=== PATIENT | male | born 1955 | race Caucasian/White ===

== ENCOUNTER 2020-12-27 10:31 | Emergency (ER) | payer OTHER, SELFPAY ==
[2020-12-27 11:34] VITALS: BP 150/93; PULSE 58; RESP 14; TEMP 36.9; O2SAT 99
--- NOTE | 2020-12-27 12:43 | ED.SKABFB ---
HPI - Skin/Abscess/Foreign Bdy General Chief complaint: Skin/Abscess/Foreign Body Stated complaint: rash on mitchell Source: patient Mode of arrival: ambulatory Limitations: no limitations History of Present Illness HPI narrative: Patient is a 65-year-old male who presents with redness to the right lower extremity x2 days. Patient reports that he was weed whacking weekend and possible injury. Denies pain, warmth or tenderness to right lower extremity. Patient reports that he was wanting wound checked as he is traveling out of the [facility] this week. Denies history of DVT. Denies all other complaints at this time. Patient is on Eliquis. complaint: rash Related Data Allergies Allergy/AdvReac Type Severity Reaction Status Date / Time No Known Allergies Allergy Verified 12/27/20 11:57 Review of Systems Review of Systems: CONSTITUTIONAL: Denies fever, chills, or sweats. EYES: Denies visual changes, redness, or discharge. ENT: Denies rhinorrhea, congestion, sore throat, or otalgia. CARDIOVASCULAR: Denies chest pain, palpitations, or edema. RESPIRATORY: Denies cough or dyspnea. GASTROINTESTINAL: Denies abdominal pain, nausea, vomiting, or diarrhea. GENITOURINARY: Denies dysuria or hematuria. SKIN: Reports reddened area to right lower extremity MUSCULOSKELETAL: Denies back pain, joint pain, or myalgia. NEUROLOGIC: Denies headache, numbness, dizziness, or weakness. PSYCHIATRIC: Denies anxiety or depression. [facility] Past Medical History Medical History Atrial fib/flutter, transient History of cardioversion HTN (hypertension) Family History Family History Other Heart disease Hypertension Social History Social History (Updated 12/27/20 @ 12:49 by ALON Velazquez) Smoking status: Never smoker Alcohol intake: never Substance use: never Living arrangements: with family Comments At the time of signature, I have reviewed and agree with nursing past medical, surgical, social, and family history unless otherwise noted. Please see nursing chart for further information. There is no relevant family history pertinent to the presenting complaint. Exam Narrative: GENERAL: Well-appearing, well-nourished, and in no acute distress. HEAD: Normocephalic, atraumatic. EYES: EOMI. No redness or drainage. Conjunctiva are normal. ENT: Mucous membranes pink and moist. CHEST: No respiratory distress. HEART: Regular rate and rhythm. EXTREMITIES: Normal range of motion. SKIN: Small area of redness to right lower extremity, no surrounding erythema or edema, no tenderness with palpation NEURO: No focal deficits. Alert and oriented x3. Gait steady. PSYCH: Normal affect. No signs of depression or anxiety. Course Vital Signs Vital signs: Vital Signs Temperature 36.9 C 12/27/20 11:34 Pulse Rate 58 L 12/27/20 11:34 Respiratory Rate 14 12/27/20 11:34 Blood Pressure 150/93 H 12/27/20 11:34 Pulse Oximetry 99 12/27/20 11:34 Temperature 36.9 C 12/27/20 11:34 Pulse Rate 58 L 12/27/20 11:34 Respiratory Rate 14 12/27/20 11:34 Blood Pressure 150/93 H 12/27/20 11:34 Pulse Oximetry 99 12/27/20 11:34 MDM - Skin/Abscess/Foreign Bdy MDM Narrative Medical decision making narrative: Patient most likely has bruising to right lower extremity. Discussed with patient that there is no surrounding erythema or edema for concerning cellulitis. Discussed with patient the low risk of DVT in extremity. Patient agrees with plan of care. Patient stable for discharge home with outpatient follow-up as discussed. Differential Diagnosis Differential diagnosis: Likely abscess of skin or subcutaneous tissue, cellulitis and other (Ecchymosis) Critical Care Time Critical Care Time Critical Care Time: No Discharge Plan Discharge Clinical Impression: Bruise Patient Disposition: Home, Self-Care Conditio
== END 2020-12-27 12:54 | disposition home or self-care (01) ==
PROVIDERS: Emergency Provider Nurse Practitioner; PCP Internal Medicine Geriatric Medicine
DX: S80.11XA Contusion of right lower leg, initial encounter (principal); X58.XXXA Exposure to other specified factors, initial encounter; I48.91 Unspecified atrial fibrillation; I10 Essential (primary) hypertension
CPT/HCPCS: 99211; G0463

== ENCOUNTER 2025-02-05 08:16 | Emergency (ER) | payer MEDICARE, SELFPAY ==
--- OUTSIDE RECORDS SUMMARY | 2011-11-11 11:00 | XMS_ITS | Continuity of Care Document ---
Author Organization [facility] Address [address] [place] [address] Phone Care Team Providers Care Facility Specialist Name Role Phone Andrew Lozoya MD Unavailable Unavailable Allergies, Adverse Reactions, Alerts Substance Reaction Status Criticality No Known allergies Medications Medication Instructions Dosage Effective Dates (start - stop) Status Comments Amlodipine 5 mg Tab - Active Labetalol 200 mg Tab - Active Spironolactone 50 mg Tab - Activ e Procedures Procedure Date Office/outpatient Visit, [facility] Advance Directives Directive Yes / No Effective Date File Name No Information Encounters Encounter Description Practice Location Reason(s) For Visit Diagnoses Date Provider Providers Copied on Encounter Office/outpat ient Visit, [facility], [address], [place], [place], [id number], [place] tel:[phone] SEC Chris TAN Professional No Information 2 Darell Morales. [address] [facility], [facility], [place], [place], [id number], [place]. tel:[phone] Family History Family Member Type Diagnosis Age At Onset No Information Payers Payer name Insurance type Covered democrat ID Authoriza tion(s) No Information Social History Type Description Quantity Date Captured Comments Sex Male Smoking Status No Information Chief Complaint And Reason For Visit No Information Reason For Referral Reason For Referral No Information History Of Present Illness Encounter Date Complaint History Of Prese nt Illness No Information Functional Status Date Functional Assessmen t No Information Instructions Date Instruction Additional Infor benedict MGD ou sith sty [facility] - HMPt/dex qid for 7 days osprn Assessments Type Assessment Date No Information Patient Care Teams Name Effective Dates (start - stop) Status Members No Information
[2025-02-05 08:20] VITALS: BP 145/106; PULSE 75; RESP 20; TEMP 36.9; O2SAT 99
--- OUTSIDE RECORDS SUMMARY | 2025-02-05 08:21 | XMS_ITS | Clinical Summary ---
Author Organization [facility] [employer] Address [address] [place] [address] Phone Care Team Providers Care Telephone Betting Clerk Name Role Phone Ashley Nj MD Primary Care Provider + [phone] Nikolai Riddle MD Unavailable [phone] Lizzy Lundberg OD Unavailable [phone] Garry Kumari MD Unavailable [phone] Aron Hinkle MD Unavailable [phone] Carmela Tavares NP Unavailable [phone] Jerson Shepherd MD Unavailable [phone] Ayala Cassidy MD Unavailable [phone] Tray Phillips MD Unavailable Allergies No known active allergies Medications cholecalciferol (VITAMIN D3) 2,000 unit capsule take 1 by Oral route every day 0 0 7 Active fluticasone propionate (FLONASE) 50 mcg/actuation nasal spray Administer 1 spray into each nostril daily as needed for rhinitis Active cyanocobalamin (Vitamin B-12) 1,000 mcg tabletIndications :Prevention of Vitamin B12 Deficiency Take 1 tablet (1,000 mcg total) by mouth daily Active amLODIPine (NORVASC) 5 mg tabletIndications :Benign hypertension Take 0.5 tablets (2.5 mg total) by mouth 2 (two) times a day 90 tablet 3 5 10/21/19 26 Active furosemide (LASIX) 40 mg tablet TAKE 1 TABLET(40 MG) BY MOUTH DAILY 90 tablet 3 5 Active clindamycin (CLEOCIN T) 1 % lotion APPLY TOPICALLY TO THE AFFECTED AREA 1 TO 2 TIMES DAILY UNTIL GONE 5 Active tirzepatide, weight loss, (Zepbound) 2.5 mg/0.5 mL pen injectorIndicatio ns:Class 2 obesity with alveolar hypoventilation, serious comorbidity, and body mass index (BMI) of 37.0 to 37.9 in adult (HCC),Obstructive sleep apnea syndrome Inject 0.5 mL (2.5 mg total) under the skin once a week 2 mL 1 5 Active empagliflozin (Jardiance) 10 mg tablet Take 1 tablet (10 mg total) by mouth daily before breakfast 90 tablet 3 5 Active apixaban (Eliquis) 5 mg tabletIndications :Atrial fibrillation and flutter Take 1 tablet (5 mg total) by mouth 2 (two) times a day 180 tablet 2 5 Active carvediloL (COREG) 25 mg tabletIndications :Benign hypertension,Atri al fibrillation and flutter Take 1 tablet (25 mg total) by mouth 2 (two) times a day with meals 180 tablet 2 5 Active lansoprazole (PREVACID) 30 mg capsuleIndication s:Chronic GERD Take 1 capsule (30 mg total) by mouth daily Eat within 30 minutes of taking this pill 90 capsule 2 5 Active rosuvastatin (CRESTOR) 20 mg tabletIndications :Multiple-type hyperlipidemia,Co ronary artery calcification seen on CAT scan Take 1 tablet (20 mg total) by mouth daily 90 tablet 2 5 Active spironolactone (ALDACTONE) 25 mg tabletIndications :Benign hypertension Take 1 tablet (25 mg total) by mouth daily 90 tablet 2 5 Active Active Problems Problem Noted Date Diagnosed Date Coronary artery calcification seen on CAT scan 0 12/23/2024 Ascending aortic aneurysm 06/21/2024 Overview (06/21/2024): Follow-up cardiology Dr. Shepherd with yearly CT chest 2024 4.4 cm with known findings of cardiac enlargement and coronary calcifications Alcohol use disorder, moderate, dependence 06/21 Pulmonary hypertension 01/22/2024 Overview (06/21/2024): Followed by Dr. Shepherd and Carmela Mild pulmonary hypertension based on right ventricular systolic pressure. Estimated peak RVSP is 40-45 mmHg. Mild tricuspid regurgitation. Mitral valve insufficiency 01/02/2024 S/P umbilical hernia repair, follow-up exam 12/2023 Multiple-type hyperlipidemia 06/12/2022 Hx of adenomatous colonic polyps 11/24/2019 Overview (07/29/2023): Colonoscopy 2023 Dr[address] Phillips single tubular adenoma Colonoscopy (+) 2018 Dr. Hinkle, family history of colon cancer due every 5 years next 2023 Family hx of colon cancer 08/17/2018 Overview (08/17/2018): Added automatically from request for surgery [id number] Class 2 obesity with alveola r hypoventilation, serious comorbidity, and body mass index (BMI) of 37.0 to 37.9 in adult 01/09/2017 Chronic GERD 09/04/2013 Overview (07/25/2016): GERD (gastroesophageal reflux disease) Benign hypertension 09/04/2013 Overview (07/25/2016): Benign essential HTN Assessment & Plan (05/26/2019 10:22 AM BODY SHOP WORKER): Blood pressure well controlled will continue present regimen Assessment & Plan (05/19/2019 10:33 AM BODY SHOP WORKER): Amlodipine Coreg Aldactone Atrial fibrillation and flutter 04/05/2013 Overview (01/22/2018): Atrial flutter with controlled response Referred to Dr. Kumari, underwent cardioversion 09/12/2017 Follow up with Josselyn C. [place], CONTRACT CONSULTANT (Nurse Practitioner); Follow up with Josselyn Mathis CONTRACT CONSULTANT ([place] Reconciliation Specialist) Friday11/26/17 at 9:00am in the [place] office [address] ([facility]) [address] [place] [address]; . Follow up with Other Follow-up; Echocardiogram on Friday10/03/17 at 10:30 am in the [place] office #[address] Stephanie Monreal ([facility]) [address] [place] [address]; . Follow up with Other Follow-up; Lexiscan Stress Test on 10/09/17 at 9:00 am in the [place] office [address] ([facility]) [address] [place] [address]; .; Nothing to eat or drink after midnight the night prior to the test. Assessment & Plan (05/19/2019 10:33 AM BODY SHOP WORKER): 100mg Amiodarone 12.5mg BID of Coreg Eliquis 5mg BID Periodic limb movement disorder 09/06/2012 Overview (07/25/2016): PLMD (periodic limb movement disorder) Obstructive sleep apnea syndrome 07/30/2012 Overview (07/25/2016): JENNIFER (obstructive sleep apnea) Assessment & Plan (05/26/2019 10:59 AM BODY SHOP WORKER): Patient uses CPAP for sleep. He is compliant with and seeing benefit. Follows with pulmonary for management. Assessment & Plan (05/19/2019 10:34 AM BODY SHOP WORKER): Compliant with CPAP Resolved Problems Problem Noted Date Diagnosed Date Resolved Date Umbilical hernia without obs truction and without gangrene 06/17/2023 07/29/2023 Screening for colon cancer 06/11/2023 0 12/22/2024 Basal cell carcinoma (BCC) of left forearm 04/08/2022 12/23/2024 Dysphagia 01/01/2022 05/20/2022 Overview (01/01/2022): Added automatically from request for surgery [id number] Acute bacterial rhinosinusitis 08/24/2021 05/20/2022 Assessment & Plan (08/24/2021 1:16 PM CDT): Patient presents with ear fullness and sinus congestion x 10 days. He has used sudafed with little relief. His symptoms and exam findings are suggestive of acute sinusitis. Flu and covid testing negative. He will be sent antibiotic that he will complete as prescribed. He was encouraged to use sinus rinses, flonase, and Mucinex as well. Encouraged rest, fluids and tylenol for pain or fever. He is to call should his symptoms worsen or persist. Plant dermatitis 09/12/2020 05/15/2021 Assessment & Plan (09/12/2020 9:55 AM CDT): Patient has blistering linear rash on left upper arm, axilla and left shoulder that occurred after weeding late last week. Rash associated with itching and burning. Most consistent with a plant dermatitis. He has had no further spread since Friday. He was encouraged to use a non-sedating daily antihistamine and pepcid 20mg twice a day to help with histamine response. He will be sent rx for topical steroid that he can apply BID as needed. He was instructed to call with any persistent or spreading symptoms. He voiced understanding. COVID-19 virus detected 12/16/201904/23 Overview (12/16/2019): (+) 12/17/19 Left shoulder pain 05/11/2019 Assessment & Plan (05/26/2019 10:21 AM BODY SHOP WORKER): Pain is persistent and he has not seen much improvement since beginning physical therapy. He has seen ortho in the past and we will refer back for further evaluation. He can continue with tylenol for pain. Assessment & Plan (05/11/2019 10:55 AM BODY SHOP WORKER): Patient presents with acute left shoulder tearing/achy pain that occurred with throwing trash over head today. Patient has known hx of rotator cuff tear with repair and symptoms are somewhat similar. We will do xray of the left shoulder to r/o any acute fracture or dislocation. He was encouraged to use ice for pain and rest the shoulder. He can also use ibuprofen for pain and use Prilosec over the counter to protect his stomach, patient reports has not needed stomach protectant in past. If no acute process on xray will refer for physical therapy. He has a follow up scheduled the beginning of May and will re-evaluate at that time. He was instructed if any worsening pain or associated numbness he will need to call and will most likely at that point need a MRI. Hematoma 03/01/2019 05/15/2021 Assessment & Plan (03/08/2019 11:00 AM BODY SHOP WORKER): RLE hematoma secondary to injury, exacerbated in the setting of anticoagulant use with eliquis. No signs of fracture identified. No enlargement in size reported per pt. Pt instructed to continue with ice and elevation. He was instructed to call if symptoms worsen or he develops any associated fevers Allergic rhinitis 08/01/2017 11/24/2019 Assessment & Plan (08/01/2017 10:11 AM CDT): Patient denies any difficulty breathing true bilateral nares. Patient states that he was unaware of any nasal blockage and did note any symptoms related to nasal blockage. His PCP was concerned about a nasal obstruction. Patient has continued allergic rhinitis symptoms including congestion, rhinorrhea, enlarged turbinates. Patient has never been allergy tested and is unaware specific triggers. Patient does note an increase in his symptoms during the fall, sprain, and rainy days. Patient currently takes p.r.n. allergy nasal sprays. Discussed with patient's the importance of taking his allergy medication on a regular basis. Advised patient to use Flonase daily take an oral Zyrtec daily and add a nasal irrigation daily If his symptoms do not improve we will consider allergy testing and possible imaging. A do think the concern for obstruction is related to his uncontrolled allergies and congestion. Patient to follow-up in 3 months or sooner if symptoms do not improve Umbilical hernia with obstruction 07/16/2017 12/22/2024 Assessment & Plan (06/05/2023 9:47 AM BODY SHOP WORKER): Given the symptomatic nature we will set the patient up for a robotic assisted umbilical hernia repair. Given his full anticoagulation use we will have him seen by Cardiology in preparation so that we may be able to hold it. He also is due for his 5 year colonoscopy. We have discussed I would like to have this done beforehand just to ensure nothing is found within the colon. Until then he can try an abdominal binder to offload any discomfort he may have. We have gone over signs and symptoms of incarceration. He is in understanding of the plan. Nasal obstruction 07/16/2017 11/24/2019 Prediabetes 01/09/2017 05/29/2023 Chronic rhinitis 09/04/2013 05/15/2021 Overview (07/25/2016): Chronic rhinitis Encounters Date Type Department Care Team Description 12/23/2024 8:00 AM CDT Office Visit [facility] [place] [facility] [address] [place] [address] Ashley Nj MD Class 2 obesity with alveolar hypoventilation, serious comorbidity, and body mass index (BMI) of 37.0 to 37.9 in adult (HCC) (Primary Dx); Obstructive sleep apnea syndrome; Benign hypertension; Aneurysm of ascending aorta without rupture; Atrial fibrillation and flutter; Chronic GERD; Multiple-type hyperlipidemia; Coronary artery calcification seen on CAT scan; Alcohol use disorder, moderate, dependence (HCC); Hx of adenomatous colonic polyps; Family hx of colon cancer; Prediabetes; Prostate cancer screening; Other symptoms and signs concerning food and fluid intake 12/14/2024 7:40 AM CDT Lab [facility] [address] [place] [address] Encounter for medication monitoring; Need for hepatitis B screening test; Atrial fibrillation and flutter; Coronary artery calcification seen on CAT scan; Prediabetes from Last 3 Months Immunizations Immunization Administration Dates Next Due Influenza, Quadrivalent, Hig h Dose, Preservative Free, Intrr 05/29/2023 Influenza, Quadrivalent, Spl it, Intramuscular 02/12/2017,07/08/2016 Influenza, Quadrivalent, Spl it, Preservative Free, Intramuscular 05/20/2022,05/15/2021,03/10/2019,01/28 Influenza, Trivalent, IM (MDV) 04/25/2014 MMR 02/18/2008 Pneumococcal Conjugate Pcv20 05/29/2023 Tdap 07/16/2017,03/20/2012 Surgical History Surgery Date Site/Laterality Comments ROTATOR CUFF REPAIR Right Details lacking. COLONOSCOPY W/ BIOPSIES AND POLYPECTOMY 08/19/2013 - 09/18/2013 Colonoscopy (+) tubular adenoma Dr. Mcmahon CARDIOVERSION 09/12/[address] Kumari COLONOSCOPY 08/19/2013 - 09/18/201308/2013 COLONOSCOPY W/ POLYPECTOMY 09/17/2018 (+)Dr. Hinkle single ascending polyp SINGLE TUBULAR ADENOMA ROTATOR CUFF REPAIR Left Details lacking. ESOPHAGOSCOPY / EGD 01/10/2022 (-) Dr. Garcia COLONOSCOPY 07/01/2023 (+) Dr. Phillips several polyps pathology pending: Single tubular adenoma due 06/30/26 not a clean test SKIN CANCER EXCISION HERNIA REPAIR 07/18/[address] Dr. Phillips Medical History Medical History Date Comments Vertigo 2011 Details lacking. Obesity Hypertension A-fib (HCC) Umbilical hernia 02/2012 eraser Tobacco use 5/6 cig a week f rom age 21 H. pylori infection JENNIFER (obstructive sleep apnea) c pap at night Colon polyp Molluscum contagiosum 2011 Details la cking. Knee pain 2011 Right knee pain, details lacking. Prediabetes 01/09/2017 GERD (gastroesophageal reflux disease) Umbilical hernia without obs truction and without gangrene 06/17/2023 Basal cell carcinoma (BCC) o f left forearm 04/08/2022 Family History Medical History Relation Name Comments Bile duct cancer Father Cancer Father Colon cancer Mother's Brother Hypertension Other Family history of Hypertension; Relation Name Status Comments Father Mother's Brother Other Social History Tobacco Use Types Packs/Day Years Used Date Smoking Tobacco: Former Cigars Q uit: 1984 Smokeless Tobacco: Former Tobacco Cessation:Counseling Given: Not Answered Alcohol Use Standard Drinks/Week Comments Yes 1 (1 standard drink = 0.6 oz pur e alcohol) 6 beers in a week. AUDIT-C Answer Date Recorded Q1: How often do you have a drink containing alcohol? 4 or more times a week 07/11/2023 Q2: How many drinks containi ng alcohol do you have on a typical day when you are drinking? 3 or 4 Q3: How often do you have si x or more drinks on one occasion? Never 07/11/2023 PHQ-2 Answer Date Recorded PHQ-2 Total Score (If total score is 3 or more points, staff should administer the PHQ-9) 0 06/21/2024 Personal Safety Answer Date Recorded Have you ever been in or are you currently in a harmful physical or emotional relationship or is someone making you feel afraid or unsafe? 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 Not on file Not on file Not on fi le Obstetrics History Last Filed Vital Signs Vital Sign Reading Time Taken Comments Blood Pressure 130/82 12/23/2024 8:02 AM CDT Pulse 52 12/23/2024 8:02 AM CDT Temperature 36.5 C (97.7 F) 12/23/2024 8:02 AM CDT Respiratory Rate 16 12/23/2024 8:02 AM CDT Oxygen Saturation 99% 12/23/2024 8:02 AM CDT Inhaled Oxygen Concentration - - Weight 111.2 kg (245 lb 3.2 oz) 12/23/2024 8:02 AM CDT Height 172.7 cm (5' 8) 12/23/2024 8:02 AM CDT Body Mass Index 37.28 12/23/2024 8:02 AM CDT Plan of Treatment Health Maintenance Due Date Last Done Comments Zoster Vaccine (1 of 2) 09/21/2007 Covid-19 Vaccine (2024-2 6 season) 2024 08/02/2020, 07/05/2020 Influenza Vaccine (#1) 2024 , 05/20/2022, 05/15/2021, Additional history exists Depression Screening 06/21/2025 06/21/2024, 05/29/2023, 05/29/2023, Additional history exists Fall Risk Assessment 06/21/2025 06/21/2024, 01/22/2024, 05/29/2023 Well Visit 65+ 06/21/2025 06/21/2024, 0211/2023, 05/20/2022, Additional history exists Prostate Cancer Screening-PSA 06/14/2026, 05/22/2023, 05/13/2022, Additional history exists DTaP/Tdap/Td Vaccine (3 - Td or Tdap) 07/17/2027 07/16/2017, 03/20/2012 Colon Cancer Screening-Colonoscopy 06/30/2033 07/01/2023, 09/17/2018, 09/08/2013 Hepatitis C Screening Completed 01/01/2017 Pneumococcal vaccine 65+ Completed 05/29/2023 Colon Cancer Screening-CT Colonography Discontinued 07/01/2023, 09/17/2018, 09/08/2013 Colon Cancer Screening-DNA Stool Discontinued 07/01/2023, 09/17/2018, 09/08/2013 Colon Cancer Screening-FIT Discontinued 06/30, 09/17/2018, 09/08/2013 Colon Cancer Screening-Sigmoidoscopy Discontinued 07/01/2023, 09/17/2018, 09/08/2013 Abdominal Aortic Aneurysm (A AA) Screen Completed 08/13/2024, 08/13/2024, 06/18/2024, Additional history exists Hepatitis B Screening Completed 12/14/2024 Medical Devices Implanted Type Area Tire Recapping Machine Operator Device Identifier Shelf Expiration Date Model / Serial / Lot [employer] Ventralight St Sepra 4.5in Uncoated Monofilament Lightweight [id number] - [id number] Implanted:Qty: 1 on 07/18/2023 by Tray Phillips MD at [facility] N/A: Umbilical [employer] 01/16/2025 [id number] / / [id number] Procedures Procedure Name Priority Date/Time Associated Diagnosis Comments ALBUMIN CREATININE RATIO, URINE Routine 12/14/2024 9:42 AM CDT Prediabetes EGFR Routine 12/14/2024 7:37 AM CDT Prediabetes DIFFERENTIAL AUTO Routine 12/14/2024 7:3 7 AM CDT Atrial fibrillation and flutter CHOLESTEROL, LDL, DIRECT Routine 12/14/2024 7:37 AM CDT Prediabetes HEMOGLOBIN A1C Routine 12/14/2024 7:37 AM CDT Prediabetes COMPREHENSIVE METABOLIC PANEL Routine 12/14/2024 7:37 AM CDT Prediabetes PRO B-TYPE NATRIURETIC PEPTIDE Routine 12/14/2024 7:37 AM CDT Atrial fibrillation and flutter Coronary artery calcification seen on CAT scan CBC WITH AUTO DIFFERENTIAL Routine 12/14/2024 7:37 AM CDT Atrial fibrillation and flutter IRON PROFILE W/ IBC Routine 12/14/2024 7 :37 AM CDT Atrial fibrillation and flutter HEPATITIS B CORE ANTIBODY, TOTAL Routine 12/14/2024 7:37 AM CDT Encounter for medication monitoring Need for hepatitis B screening test HEPATITIS B SURFACE ANTIBODY (IMMUNE STATUS) Routine 12/14/2024 7:37 AM CDT Encounter for medication monitoring Need for hepatitis B screening test HEPATITIS B SURFACE ANTIGEN Routine 12/14/2024 7:37 AM CDT Encounter for medication monitoring Need for hepatitis B screening test CT CHEST ABDOMEN WO CONTRAST Schedule Routine, Read Routine (OP Routine) 08/13/2024 5:34 PM CDT Abdominal aortic aneurysm (AAA) without rupture, unspecified part PSA SCREEN Routine 06/14/2024 7:31 AM BODY SHOP WORKER Prostate cancer screening COLONOSCOPY 07/01/2023 11:23 AM CDT HEPATITIS C ANTIBODY Routine 01/01/2017 7:31 AM CDT Exposure to hepatitis B from Last 3 Months or Most Recently Relevant to Health Maintenance Results * (ABNORMAL) Albumin Creatinine Ratio, Urine (12/14/2024 9:42 AM CDT) Albumin Ur 22.4 mg/L Comment: Interpretive Data No reference range established. Current interpretive data was last revised 2018. Testing performed by: [facility], [address] [place] [address]., [id number] Creatinine Ur 75.6 mg/dL MOMO Comment: Interpretive Data No reference range established. Current interpretive data was last revised 2018. Testing performed by: [facility], [address] [place] [address]., [address] Albumin Creatinine Ratio, Ur 30(H) 1 - 29 mg/g [facility] Comment:Testing performed by : [address] [address] Urine 12/14/2024 9:42 AM CDT 12/14/2024 12:34 PM CDT Ashley Nj MD LAB URINE ORDERABLES Final Result [address] [place] [address] * eGFR (12/14/2024 7:37 AM CDT) eGFR >90 >=60 mL/min/1. 73 m2 Comment: Interpretive Data Reference Interval Normal >/= 90 mL/min/1.73m2 Mildly decreased* 60 - 89 mL/min/1.73m2 Mildly to moderately decreased 45 - 59 mL/min/1.73m2 Moderately to severely decreased 30 - 44 mL/min/1.73m2 Severely decreased 15 - 29 mL/min/1.73m2 Kidney Failure < 15 mL/min/1.73m2 *Relative to young adult level Estimated glomerular filtration rate is determined by the 2020 CKD-EPI equation recommended by the National Kidney Foundation (A Unifying Approach to GFR Estimation: Recommendations of the NKF-ASK Task Force on Reassessing the Inclusion of Race in Diagnosing Kidney Disease, JASN 202). The CKD-EPI equation should not be used for patients with unstable renal function and has not been validated in children and those over 70. Current interpretive data was last reviewed 2021. Testing performed by: [address] [address] Blood 12/14/2024 7:37 AM CDT 12/14/2024 1:03 PM CDT Ashley Nj MD LAB BLOOD ORDERABLES Final Result [address] Department [place] [address] * Differential, auto (12/14/2024 7:37 AM CDT) Neutrophil abs 5.23 1.50 - 6.50 K/cumm Comment:Testing performed by : [address] [address] Imm gran abs 0.02 0.00 - 0.10 K/cumm [facility] Comment:Testing performed by : [address] [address] Lymphocyte abs 1.48 0.80 - 3.30 K/cumm [facility] Comment:Testing performed by : [address] [address] Monocyte abs 0.72 0.20 - 0.80 K/cumm [facility] Comment:Testing performed by : [address] [address] Eosinophil abs 0.11 0.00 - 0.50 K/cumm [facility] Comment:Testing performed by : [address] [address] Basophil abs 0.06 0.00 - 0.10 K/cumm [facility] Comment:Testing performed by : [address] [address] Neutrophil pct 68.7 % [facility] Comment: Interpretive Data Percent cell count reference ranges are not reported, since discordance with absolute values may lead to misinterpretation of CBC data. Current Interpretive Data was last revised on 2017. Testing performed by: [address], [address] Imm gran pct 0.3 % [facility] Comment: Interpretive Data Percent cell count reference ranges are not reported, since discordance with absolute values may lead to misinterpretation of CBC data. Current Interpretive Data was last revised on 2017. Testing performed by: [facility], [address] [place] [address]., [address] Lymphocyte pct 19.4 % [facility] Comment: Interpretive Data Percent cell count reference ranges are not reported, since discordance with absolute values may lead to misinterpretation of CBC data. Current Interpretive Data was last revised on 2017. Testing performed by: [address] [address] Monocyte pct 9.4 % [facility] Comment: Interpretive Data Percent cell count reference ranges are not reported, since discordance with absolute values may lead to misinterpretation of CBC data. Current Interpretive Data was last revised on 2017. Testing performed by: [address] [address] Eosinophil pct 1.4 % [facility] Comment: Interpretive Data Percent cell count reference ranges are not reported, since discordance with absolute values may lead to misinterpretation of CBC data. Current Interpretive Data was last revised on 2017. Testing performed by: [address] [address] Basophil pct 0.8 % [facility] Comment: Interpretive Data Percent cell count reference ranges are not reported, since discordance with absolute values may lead to misinterpretation of CBC data. Current Interpretive Data was last revised on 2017. Testing performed by: [address] [address] Blood 12/14/2024 7:37 AM CDT 12/14/2024 12:57 PM CDT Ashley Nj MD LAB BLOOD ORDERABLES Final Result [facility] [place] [address] * (ABNORMAL) Pro B-type natriuretic peptide (12/14/2024 7:37 AM CDT) NT-proBNP 762(H) <=300 pg/mL Comment: Interpretive Comments: A. Dyspnea in Acute Care Setting All Ages: < 300 pg/ml, acute heart failure unlikely. < 50 yrs: 300 - 450 pg/ml, further investigation warranted. > 450 pg/ml, acute heart failure likely. 50 - 74 yrs: 300 - 900 pg/ml, further investigation warranted. > 900 pg/ml, acute heart failure likely . > or = 75 yrs: 450 - 1800 pg/ml, further investigation warranted. > 1800 pg/ml, acute heart failure likely. B. Non-acute Setting < 75 yrs < 125 pg/ml, rules out heart failure. > or = 125 pg/ml, further investigation warranted. > or = 75 yrs < 450 pg/ml, rules out heart failure. > or = 450 pg/ml, further investigation warranted. - Knowledge of each individual patient's NT-proBNP range may be more useful than using similar cut-points for every patient. Please note that marked elevations in NT-proBNP levels may be observed in state other than Left Ventricular Congestive Failure, including: acute coronary syndromes, right heart strain/failure (including pulmonary embolism and cor pulmonale), critical illness, renal failure, as well as advanced age. - References: 1. Jaci JL et.al. Eur Heart J. 2006:27:330-337. 2. Jose A RW, Gavino FORMAN. J. AM Jackie Cardiol: Cardiovasc Imag. 2009;2: 216- 225. Interpretive Data Last Revised Date: 2017. Testing performed by: [facility], [address] [place] [address]., [address] Blood 12/14/2024 7:37 AM CDT 12/14/2024 12:57 PM CDT us Ashley Nj MD LAB BLOOD ORDERABLES Final Result MOOM [address] [facility] Department [place] [address] * Iron profile w/ IBC (12/14/2024 7:37 AM CDT) Pathologist [facility] Iron 71 50 - 150 mcg/dl Comment:Testing performed by : [address] [address] TIBC 271 250 - 400 mcg/dL CERNER CH Comment:Testing performed by : [address], [address] Transferrin saturation 26 20 - 50 % CERNER CH Comment:Testing performed by : [address], [address] Blood 12/14/2024 7:37 AM CDT 12/14/2024 12:57 PM CDT us Ashley Nj MD LAB BLOOD ORDERABLES Final Result [facility] [address] [place] [address] * CBC with auto differential (12/14/2024 7:37 AM CDT) WBC 7.62 3.80 - 9.90 K/cumm Comment:Testing performed by : [address], [address] Hgb 13.7 13.0 - 17.5 g/dL CERNER CH Comment:Testing performed by : [address], [address] Hct 41.6 38.9 - 50.3 % CERNER CH Comment:Testing performed by : [address], [address] Plt 204 150 - 400 K/cumm CERNER CH Comment:Testing performed by : [address], [address] MPV 9.5 9.1 - 12.3 fL CERNER CH Comment:Testing performed by : [address], [address] RBC 4.48 4.30 - 5.80 M/cumm CERNER CH Comment:Testing performed by : [address], [address] MCV 92.9 81.3 - 96.4 fL CERNER CH Comment:Testing performed by : [address], [address] MCH 30.6 27.1 - 33.3 pg MOMO Comment:Testing performed by : [facility], [address] [place] [address], [address] MCHC 32.9 32.3 - 35.7 g/dL MOMO Comment:Testing performed by : [facility], [address] [place] [address], [address] RDW CV 12.3 11.1 - 14.9 % MOMO Comment:Testing performed by : [facility], [address] [place] [address], [address] RDW SD 42.1 35.7 - 48.1 fL CERANN Comment:Testing performed by : [facility], [address] [place] [address], [address] NRBC abs 0.00 0.00 - 0.01 K/cumm MOMO Comment:Testing performed by : [address], [address] Blood 12/14/2024 7:37 AM CDT 12/14/2024 12:57 PM CDT us Ashley Nj MD LAB BLOOD ORDERABLES Final Result Performing Organization Address City/[facility]/ZIP Co de Phone Number MOMO [address] [address] [place] [address] * Hepatitis B core antibody, total Blood (12/14/2024 7:37 AM CDT) Hep B core IgG/IgM Nonreactive Nonreactive Comment:Testing performed by : [facility], [address] [place]., [address] Blood 12/14/2024 7:37 AM CDT 12/14/2024 3:00 PM CDT us Ashley Nj MD LAB MICROBIOLOGY - GENERAL ORDERABLES Final Result M[facility]O [address] [address] Department [place] [address] * Hepatitis B surface antibody (immune status) Blood (12/14/2024 7:37 AM CDT) HBsAb (immune status) Nonreactive Comment: Interpretive Data Nonreactive: This result is consistent with a lack of immunity to Hepatitis B Virus when used in the setting of routine screening. Equivocal: The immune status of the individual should be further assessed, if appropriate, after consideration of clinical status, risk factors, and additional diagnostic information. Reactive: This result is consistent with immunity to Hepatitis B Virus when used in the setting of routine screening. Current interpretive data was last revised on 19. Testing performed by: [address] [address] Blood 12/14/2024 7:37 AM CDT 12/14/2024 12:57 PM CDT us Ashley Nj MD LAB MICROBIOLOGY - GENERAL ORDERABLES Final Result Performing Organization Address [facility] de Phone Number [facility] [address] [facility] Department of [employer] [place] [address] * Hepatitis B Surface Antigen Blood (12/14/2024 7:37 AM CDT) Pathologist [facility] HepBsAg Nonreactive Nonreactive Comment:Testing performed by : [facility], [address] [place] [address]., [address] Blood 12/14/2024 7:37 AM CDT 12/14/2024 12:57 PM CDT us Ashley Nj MD LAB MICROBIOLOGY - GENERAL ORDERABLES Final Result Performing Organization Address [facility] Co de Phone Number [facility] [address] [facility] Department [place] [employer] [place] [address] * Cholesterol, LDL, direct (12/14/2024 7:37 AM CDT) Pathologist [facility] LDL Cholesterol, Direct 55 <=129 mg/dL Comment: Interpretive Data Ages < or = 19 years Acceptable: <110 mg/dL Borderline high: 110-129 mg/dL High: >or= 130 mg/dL Ages > or = 20 years Optimal: <100 mg/dL Near optimal: 100-129 mg/dL Borderline high: 130-159 mg/dL High: >160 mg/dL Literature References: 1. Expert Panel on Integrated Guidelines for Cardiovascular Health and Risk Reduction in Children and Adolescents. Pediatrics 2011;128:S213 2. NCEP Expert Panel. Circulation 2004;110:227 Current Interpretive Data was last revised on 2017. Testing performed by: [address] [address] Blood 12/14/2024 7:37 AM CDT 12/14/2024 12:57 PM CDT us Ashley Nj MD LAB BLOOD ORDERABLES Final Result Performing Organization Address [facility] Co de Phone Number MOMO [facility] [place] [address] * Hemoglobin A1c (12/14/2024 7:37 AM CDT) [facility] Hgb A1C 5.6 4.0 - 5.6 % Comment:Testing performed by : [address] [address] Estimated Average Glucose 114 mg/dL MOMO Comment: The ADA recommends reporting an estimated Average Glucose (eAG) with all Hemoglobin A1c results using the equation derived from a study of 507 normal and diabetic adults. Minority populations were underrepresented and children were not included. (Diabetes Care 31:6934-4616, 2008). The eAG is not equivalent to a fasting glucose. Testing performed by: [address] [address] Blood 12/14/2024 7:37 AM CDT 12/14/2024 12:57 PM CDT us Ashley Nj MD LAB BLOOD ORDERABLES Final Result Performing Organization Address [facility] Co de Phone Number [facility] [address] [facility] Department [place] [address] * Comprehensive metabolic panel (12/14/2024 7:37 AM CDT) [facility] Sodium 139 135 - 145 mmol/L Comment:Testing performed by : [facility], [address] [place] [address]., [address] Potassium, pl 3.6 3.3 - 4.9 mmol/L CERNER CH Comment:Testing performed by : [address] [address] Chloride 102 97 - 110 mmol/L CERNER CH Comment:Testing performed by : [address] [address] CO2 27 22 - 32 mmol/L CERNER CH Comment:Testing performed by : [address] [address] Anion gap 10 2 - 15 mmol/L CERNER CH Comment:Testing performed by : [address] [address] BUN 10 6 - 25 mg/dL CERNER CH Comment:Testing performed by : [address] [address] Creatinine 0.87 0.80 - 1.30 mg/dL CERNER CH Comment:Testing performed by : [address] [address] Glucose 102 70 - 199 mg/dL CERNER CH Comment: Interpretive Data Fasting glucose >/= 126 mg/dl is diagnostic for diabetes. Fasting is defined as no caloric intake for at least 8 hours. Fasting glucose between 100 mg/dl to 125 mg/dl is diagnostic of prediabetes. In a patient with classic symptoms of hyperglycemia or hyperglycemic crisis, a random glucose >/= 200 mg/dl is diagnostic for diabetes. In the absence of unequivocal hyperglycemia, results should be confirmed by repeat testing. The classification and Diagnosis of Diabetes Diabetes Care 202; 46: S19-S40. Current interpretive data was last revised 2022. Testing performed by: [address] [address] Calcium 9.1 8.5 - 10.3 mg/dL CERNER CH Comment:Testing performed by : [address] [address] Bilirubin, total 1.0 0.1 - 1.2 mg/dL CERNER CH Comment:Testing performed by : [address] [address] Protein, pl 7.0 6.5 - 8.5 g/dL CERNER CH Comment:Testing performed by : [facility], [address] [place] [address]., [address] Albumin 4.1 3.5 - 5.0 g/dL CERNER CH Comment:Testing performed by : [facility], [address] [place] [address]., [address] Alk phos 98 40 - 130 Units/L CERNER CH Comment:Testing performed by : [facility], [address] [place] [address]., [address] ALT 22 7 - 55 Units/L CERNER CH Comment:Testing performed by : [facility], [address] [place] [address], [address] AST 20 10 - 50 Units/L CERNER CH Comment:Testing performed by : [facility], [address] [place] [address]., [address] Blood 12/14/2024 7:37 AM CDT 12/14/2024 12:57 PM CDT Ashley Nj MD LAB BLOOD ORDERABLES Final Result [address] [place] [address] * CT Chest Abdomen WO Contrast (08/13/2024 5:34 PM CDT) Anatomical Region Laterality Modality Body N/A Computed Tomogra phy 08/25/2024 1:45 PM CDT Narrative 08/25/2024 1:49 PM CDT EXAM DESCRIPTION: CT CHEST ABDOMEN WO CONTRAST REASON FOR STUDY: Aortic aneurysm suspected F/u AAA without rupture last seen on CT 08/18/23. TECHNIQUE: CT scan of the chest and abdomen performed without intravenous and without oral contrast using helical scanning technique. Reconstructed coronal and sagittal MPR images reviewed. All images stored on PACS. Automated exposure control was used as a dose optimization technique for this examination. COMPARISON: 08/18/2023 REFERENCE: Per ACR white paper recommendations, unless otherwise specified no follow-up imaging is recommended for incidental renal and adrenal lesions per consensus recommendations based on imaging criteria. Further lab evaluation could be pursued based on clinical findings. FINDINGS: The sensitivity for detection of solid visceral lesions is diminished without the use of intravenous contrast. CHEST LUNGS: No nodules or masses. No pneumonia. PLEURA: Trace left pleural effusion. MEDIASTINUM/MARIAJOSE: No identified masses or abnormal nodes. HEART: Stable mild cardiomegaly. CORONARY ARTERY CALCIFICATION: Moderate VASCULATURE CHEST: 4.5 cm fusiform aneurysmal dilation of the ascending thoracic aorta. Aortic arch and descending thoracic aorta appear normal caliber. AXILLA: No adenopathy. CHEST WALL: No masses. No subcutaneous air. HARDWARE/LINES/TUBES: None. MUSCULOSKELETAL CHEST: No significant abnormality. ABDOMEN LIVER: Normal size. No identified cystic or solid masses. GALLBLADDER: No calcified stones identified. No wall thickening or inflammatory changes. BILE DUCTS: No intrahepatic or extrahepatic ductal dilatation. SPLEEN: Normal size. No focal lesions. PANCREAS: No identified cystic or solid masses. No significant calcifications. No adjacent inflammation or peripancreatic fluid collections. Pancreatic duct not dilated. ADRENALS: Normal. KIDNEYS/URINARY TRACT: Hydronephrosis. Bilateral water density renal cysts. GI: No dilated bowel loops. No obvious wall thickening. Normal appendix. No significant diverticular disease. PERITONEUM: No ascites or free air. RETROPERITONEUM: No mass or adenopathy. VASCULATURE ABDOMEN: No abdominal aortic aneurysm. MUSCULOSKELETAL ABDOMEN: Mild degenerative disc bulges and disc space narrowing L3-L4 L4-L5 and L5-S1. OTHER: No significant abnormality. IMPRESSION: 4.5 cm fusiform aneurysmal dilation of the ascending thoracic aorta. Trace left pleural effusion. THIS IS AN ELECTRONICALLY VERIFIED FINAL REPORT 08/25/2024 1:49 PM - Electronically signed by Jac Kuhn M.D. RW: BRANDON Report ID: [id number] Reading Location: [id number] Procedure Note Jac Kuhn MD - 08/25/2024 EXAM DESCRIPTION: CT CHEST ABDOMEN WO CONTRAST REASON FOR STUDY: Aortic aneurysm suspected F/u AAA without rupture last seen on CT 08/18/23. TECHNIQUE: CT scan of the chest and abdomen performed without intravenousand without oral contrast using helical scanning technique. Reconstructed coronal and sagittal MPR images reviewed. All images stored on PACS. Automated exposure control was used as a dose optimization technique forthis examination. COMPARISON: 08/18/2023 REFERENCE: Per ACR white paper recommendations, unless otherwise specifiedno follow-up imaging is recommended for incidental renal and adrenal lesionsper consensus recommendations based on imaging criteria. Further labevaluation could be pursued based on clinical findings. FINDINGS: The sensitivity for detection of solid visceral lesions is diminishedwithout the use of intravenous contrast. CHEST LUNGS: No nodules or masses. No pneumonia. PLEURA: Trace left pleural effusion. MEDIASTINUM/MARIAJOSE: No identified masses or abnormal nodes. HEART: Stable mild cardiomegaly. CORONARY ARTERY CALCIFICATION: Moderate VASCULATURE CHEST: 4.5 cm fusiform aneurysmal dilation of the ascending thoracic aorta. Aortic arch and descending thoracic aorta appear normal caliber. AXILLA: No adenopathy. CHEST WALL: No masses. No subcutaneous air. HARDWARE/LINES/TUBES: None. MUSCULOSKELETAL CHEST: No significant abnormality. ABDOMEN LIVER: Normal size. No identified cystic or solid masses. GALLBLADDER: No calcified stones identified. No wall thickening or inflammatory changes. BILE DUCTS: No intrahepatic or extrahepatic ductal dilatation. SPLEEN: Normal size. No focal lesions. PANCREAS: No identified cystic or solid masses. No significant calcifications. No adjacent inflammation or peripancreatic fluidcollections. Pancreatic duct not dilated. ADRENALS: Normal. KIDNEYS/URINARY TRACT: Hydronephrosis. Bilateral water density renalcysts. GI: No dilated bowel loops. No obvious wall thickening. Normalappendix. No significant diverticular disease. PERITONEUM: No ascites or free air. RETROPERITONEUM: No mass or adenopathy. VASCULATURE ABDOMEN: No abdominal aortic aneurysm. MUSCULOSKELETAL ABDOMEN: Mild degenerative disc bulges and disc space narrowing L3-L4 L4-L5 and L5-S1. OTHER: No significant abnormality. IMPRESSION: 4.5 cm fusiform aneurysmal dilation of the ascending thoracic aorta. Trace left pleural effusion. THIS IS AN ELECTRONICALLY VERIFIED FINAL REPORT 08/25/2024 1:49 PM - Electronically signed by Jac Kuhn M.D. RW: BRANDON Report ID: [id number] Reading Location: [place] [address] Carmela Tavares NP IMG CT PROCEDURES Final Result * PSA screen (06/14/2024 7:31 AM BODY SHOP WORKER) PSA-Total 0.65 <=5.40 ng/mL Comment: Interpretive Data AGE SEX REFERENCE INTERVAL 0 minutes-150 years Female None 0 minutes-49 years Male None 50-59 years Male 0-3.90 60-69 years Male 0-5.40 70-79 years Male 0-6.20 80-150 years Male 0-6.20 The Fanny PSA Total assay procedure was used. Results from different manufacturers or methods may not be comparable. Serial testing should be performed using the same method. Current interpretive data last revised 21. Testing performed by: [facility], [address] [place] [address], [place], [place]., [facility] Blood 06/14/2024 7:31 AM BODY SHOP WORKER 06/14/2024 11:51 AM BODY SHOP WORKER Ashley Nj MD LAB BLOOD ORDERABLES Final Result Performing Organization Address City/State/[facility] Co de Phone Number [address] Department [place] [address] * Colonoscopy (07/01/2023 11:23 AM CDT) Anatomical Region Laterality Modality Other Narrative Procedure Note Tray Phillips MD - 07/01/2023 11:23 AM CDT [facility] Patient Name: Callum Dunlap Procedure Date: 07/01/2023 11:23 AM Date of : 1955 Admit Type: Outpatient Age: 67 Gender: Male Attending MD: Tray Phillips M.D. Room: [facility]COPY ROOM 2 Note Status: Finalized Patient Profile: Refer to note in patient chart for documentation of history and physical. Procedure: Colonoscopy Indications: Screening for colorectal malignant neoplasm, Last colonoscopy: August 2018 Referring MD: Ashley Nj M.D. Providers: Tray Phillips M.D. Impression: - One 4 mm polyp in the mid transverse colon,removed with a jumbo cold forceps. Resected andretrieved. - One 5 mm polyp in the descending colon in the mid descending colon, removed with a jumbo coldforceps. Resected and retrieved. - Perianal skin tags found on perianal exam. - Hemorrhoids found on perianal exam. Recommendation: - Discharge patient to home. - Resume previous diet. - Continue present medications. - Await pathology results. - Repeat colonoscopy in 3 - 5 years forsurveillance. - Return to endoscopist in 1 week. Medicines: Propofol per Anesthesia Complications: No immediate complications. Estimated Blood Loss: Estimated blood loss was minimal. Procedure: Pre-Anesthesia Assessment: - Prior to the procedure, a History and Physicalwas performed, and patient medications and allergieswere reviewed. The patient's tolerance of previous anesthesia was also reviewed. The risks andbenefits of the procedure and the sedation options and risks were discussed with the patient. All questions were answered, and informed consent was obtained. Prior Anticoagulants: The patient has taken noanticoagulant or antiplatelet agents. ASA Grade Assessment: II -A patient with mild systemic disease. After reviewing the risks and benefits, the patient was deemed in satisfactory condition to undergo the procedure. The benefits, risks and alternatives of theprocedure and sedation were discussed and informed consentwas obtained. All questions were answered. Please referto the signed informed consent document in the medical record. The bowel preparation used was Miralax and bisacodyl tablets via split dose instruction. The scope was passed under direct vision. TheColonoscope [id number] was introduced through the anus and advanced to the the cecum, identified by appendiceal orifice and ileocecal valve. The colonoscopy was performed without difficulty. The patient tolerated the procedure well. The qualityof the bowel preparation was adequate to identifypolyps 6 mm and larger in size. Scope withdrawal time was12 minutes. The bowel preparation used was GoLYTELYvia single dose instruction. Bowel prep wasadministered using a single dose. Findings: A 4 mm polyp was found in the mid transverse colon. The polyp was sessile. The polyp was removed with a jumbo cold forceps. Resectionand retrieval were complete. Verification of patient identification forthe specimen was done by the nurse using the patient's name and birthdate. Estimated blood loss was minimal. A 5 mm polyp was found in the descending colon mid descending colon.The polyp was sessile. The polyp was removed with a jumbo cold forceps. Resection and retrieval were complete. Verification of patient identification for the specimen was done by the nurse using the patient's name and date. Estimated blood loss was minimal. Skin tags were found on perianal exam. Hemorrhoids were found on perianal exam. Tray Phillips M.D. 07/01/2023 12:51:09 PM Number of Addenda: 0 Note Initiated On: 07/01/2023 11:23 AM Procedure Code(s): --- Professional --- 29422, Colonoscopy, flexible; with biopsy, single or multiple --- Technical --- 06183, Colonoscopy, flexible; with biopsy, single or multiple Diagnosis Code(s): --- Professional --- Z12.11, Encounter for screening for malignant neoplasm of colon D12.3, Benign neoplasm of transverse colon (hepatic flexure orsplenic flexure) D12.4, Benign neoplasm of descending colon K64.4, Residual hemorrhoidal skin tags K64.9, Unspecified hemorrhoids --- Technical --- Z12.11, Encounter for screening for malignant neoplasm of colon D12.3, Benign neoplasm of transverse colon (hepatic flexure orsplenic flexure) D12.4, Benign neoplasm of descending colon K64.4, Residual hemorrhoidal skin tags K64.9, Unspecified hemorrhoids CPT copyright 2020 [employer]. All rights reserved. The codes documented in this report are preliminary and upon semiconductor assembler reviewmay be revised to meet current compliance requirements. Recognized by the [employer] for promoting quality in endoscopy us Tray Phillips MD ENDOSCOPY PROCED URES Final Result * Hepatitis C antibody (01/01/2017 7:31 AM CDT) Hep C Ab NON-REACTI VE NON-REACTI VE [facility] [place] SIGNAL TO CUT-OFF 0.03 <1.00 [facility] [place] Blood specimen (specimen) 01/01/2017 7:31 AM CDT 01/01/2017 7:31 AM CDT Narrative [facility] - 01/02/2017 1:16 PM CDT FASTING:YES Resulting Agency Comment Performing Organization Information: Site ID: [facility] Name: [facility] Address: [address] [place] [address] [place] [id number] Director: Frank Piedra D.O., MPH Ashley Nj MD LAB MICROBIOLOGY - GENERAL ORDERABLES Final Result [facility] Mosley from Last 3 Months or Most Recently Relevant to Health Maintenance Insurance AET[employer] SIG 110[address] [facility] MEDIC[facility] ADVANTAGE [facility] Address: [address] [address] [place] [address] [employer] MEDICARE ADVANTAGE [facility] Address: [address] [address] [place] [address] Advance Directives For more information, please contact: [phone] Documents on File Type Date Recorded Patient 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 Expl anation ADVANCE DIRECTIVE 08/14/2018 1:56 PM DNR ADVANCE DIRECTIVE 02/06/2011 POWER OF A [employer]NEY[employer] * Full Code (Latest Code Status on File) Date Activated Date Inactivated Comments 01/22/2024 12:21 PM 01/22/2024 6:25 PM * Full Code Date Activated Date Inactivated Comments 07/01/2023 11:15 AM 07/01/2023 5:27 PM * Full Code Date Activated Date Inactivated Comments 07/01/2023 11:15 AM 07/01/2023 11:15 AM * Full Code Date Activated Date Inactivated Comments 01/10/2022 1:47 PM 01/10/2022 8:21 PM * Full Code Date Activated Date Inactivated Comments 01/10/2022 1:47 PM 01/10/2022 1:47 PM Care Teams Telephone Betting Clerk Relationship Specialty Start Date End Date Ashley Nj MD PCP - General 07/19/16 [place] [address] [address] [address] Pulmonary Disease 01/13/17 Lizzy Lundberg, WOLF [address] [address] [address] Optometry 07/16/17 [place] [address] [address] [address] Consulting Physician Cardiovascular Disease 09/14/17 Aron Hinkle MD [address] [place] [address] [address] [place] [address] Consulting Physician Gastroenterology 11/13/21 Carmela Tavares, CONTRACT CONSULTANT [address] [place] [address] [address] [place] [address] Nurse Practitioner Cardiology 12/02/23 Jerson Shepherd MD [address] [place] [address] [address] [place] [address] Consulting Physician Cardiology 12/02/23 Ayala Cassidy MD [address] [place] [address] Referring Physician Dermatology 06/21/24 Tray Phillips MD [address] [place] [address] [address] [place] [address] Consulting Physician General Surgery 06/21/24
--- OUTSIDE RECORDS SUMMARY | 2025-02-05 08:21 | XMS_ITS ---
Author Organization [facility] [facility] [address] Address [address] [place] [address] Phone Care Team Providers Care Tinter Photograph Name Role Phone Ashley Nj MD Primary Care Provider [phone] Nikolai Riddle MD Unavailable [phone] Lizzy Lundberg OD Unavailable [phone] Garry Kumari MD Unavailable [phone] Aron Hinkle MD Unavailable [phone] Carmela Tavares NP Unavailable [phone] Jerson Shepherd MD Unavailable [phone] Ayala Cassidy MD Unavailable [phone] Tray Phillips MD Unavailable Active Problems Problem Noted Date Diagnosed Date [...] (08/17/2018): Added automatically from request for surgery 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 Kumari, underwent cardioversion 09/12/2017 Follow up with Josselyn Mathis NP (Nurse Practitioner); Follow up with Josselyn Mathis NP ([facility] Puller) Friday11/26/17 at 9:00am in the [facility] ([facility]) [address] [place] [address]; . Follow up with Other Follow-up; Echocardiogram on Friday10/03/17 at 10:30 am in the [facility] ([facility]) [address] [place] [address]; . Follow up with Other Follow-up; Lexiscan Stress Test on 10/09/17 at 9:00 am in the [place] office [address] [facility] ([facility]) [address] [place] [address]; .; Nothing to eat or drink after midnight the night prior to the test. Assessment & Plan (05/19/2019 10:33 AM CONCESSIONIST): 100mg Amiodarone 12.5mg BID of Coreg Eliquis 5mg BID Periodic limb movement disorder 09/06/2012 Overview (07/25/2016): PLMD (periodic limb movement disorder) Obstructive sleep apnea syndrome 07/30/2012 Overview (07/25/2016): JENNIFER (obstructive sleep apnea) Assessment & Plan (05/26/2019 10:59 AM CONCESSIONIST): Patient uses CPAP for sleep. He is compliant with and seeing benefit. Follows with pulmonary for management. Assessment & Plan (05/19/2019 10:34 AM CONCESSIONIST): Compliant with CPAP Current Treatment and Therapy Plans No current plan information found. Past Treatment and Therapy Plans No past plan information found. Lifetime Dose Tracking * Chemical Lifetime Dose Automatic Entry Manual Entr y Fluoro Time 1.1 minutes 0 minutes 1.1 minutes Resolved Problems Problem Noted Date Diagnosed Date Resolved Date Umbilical hernia without obs truction and without gangrene 06/17/2023 07/29/2023 Screening for colon cancer 06/11/2023 0 12/22/2024 Basal cell carcinoma (BCC) of left forearm 04/08/2022 12/23/2024 Dysphagia 01/01/2022 05/20/2022 Overview (01/01/2022): Added automatically from request for surgery [id number] Acute bacterial rhinosinusitis 08/24/2021 05/20/2022 Assessment & [...] 05/11/2019 Assessment & Plan (05/26/2019 10:21 AM CONCESSIONIST): Pain is persistent and he has not seen much improvement since beginning physical therapy. He has seen ortho in the past and we will refer back for further evaluation. He can continue with tylenol for pain. Assessment & Plan (05/11/2019 10:55 AM CONCESSIONIST): Patient presents with acute left shoulder tearing/achy [...] 05/15/2021 Assessment & Plan (03/08/2019 11:00 AM CONCESSIONIST): RLE hematoma secondary to injury, exacerbated in [...] 12/22/2024 Assessment & Plan (06/05/2023 9:47 AM CONCESSIONIST): Given the symptomatic nature we will set [...]
--- OUTSIDE RECORDS SUMMARY | 2025-02-05 08:21 | XMS_ITS | Encounter Summary ---
Author Organization [facility] Address [address] [place] [address] Phone Care Team Providers Care Poultry Processing Supervisor Name Role Phone Ashley Nj MD Primary Care Provider [phone] aRy Mcmahon Unavailable Unavail able Jerson Shepherd MD Unavailable [phone] Nikolai Riddle MD Unavailable [phone] Lizzy Lundberg OD Unavailable [phone] Josselyn Mathis SECOND OFFICER Unavailable [phone] Garry Kumari MD Unavailable [phone] Aron Hinkle MD Unavailable [phone] Roverto Anderson MD Unavailable [phone] Carmela Tavares SECOND OFFICER Unavailable [phone] Jerson Shepherd MD Unavailable [phone] Ayala Cassidy MD Unavailable [phone] Tray Phillips MD Unavailable Encounter Details Date Type Department Care Team (Late st Contact Info) Description 12/03/2016 Orders Only [facility] [address] [place] [address] Ashley Nj MD [address] [place] [address] Mixed hyperlipidemia (Primary Dx); Exposure to hepatitis B Social History Tobacco Use Types Packs/Day Years Used Date Smoking Tobacco: Never Assessed Sex and Gender Information Value Date Recorded Sex Assigned at Not on file Legal Sex Male 9: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 Gender Identity Not on file Sexual Orientation Not on file documented as of this encounter Plan of Treatment Scheduled Orders Name Type Priority Associated Diagnoses Orde r Schedule Cholesterol, LDL, direct Lab Routine Mixed hyperlipidemia Expected: 12/22/2016, Expires: 12/03/2017 documented as of this encounter Procedures Procedure Name Priority Date/Time Associated Diagnosis Comments HEPATITIS C ANTIBODY Routine 01/01/2017 7:31 AM CDT Exposure to hepatitis B CHOLESTEROL, LDL, DIRECT Routine 01/01/2017 7:31 AM CDT COMPREHENSIVE METABOLIC PANEL Routine 01/01/2017 7:31 AM CDT Mixed hyperlipidemia documented in this encounter Results * (ABNORMAL) Cholesterol, LDL, direct (01/01/2017 7:31 AM CDT) LDL, direct 121(H) <100 mg/dL [facility] Comment: Greatly elevated Triglycerides values (>1200 mg/dL) interfere with the dLDL assay. As no Triglycerides testing was ordered, interpret results with caution. Desirable range <100 mg/dL for patients with CHD or diabetes and <70 mg/dL for diabetic patients with known heart disease. 01/01/2017 7:3 1 AM CDT 01/01/2017 7:31 AM CDT Narrative [facility] - 01/02/2017 1:16 PM CDT FASTING:YES Resulting Agency Comment Performing Organization Information: Site ID: [id number] Name: [employer] [facility] [address] [facility] [address] [address] Director: Frank Piedra D.O., MPH us Ashley Nj MD LAB BLOOD ORDERABLES Final Result [facility] [place] [facility] Ray * (ABNORMAL) Comprehensive metabolic panel (01/01/2017 7:31 AM CDT) Glucose 103(H) 65 - 99 mg/dL [facility] [place] Comment: Fasting reference interval For someone without known diabetes, a glucose value between 100 and 125 mg/dL is consistent with prediabetes and should be confirmed with a follow-up test. BUN 15 7 - 25 mg/dL [facility] [place] Creatinine 0.91 0.70 - 1.33 mg/dL [facility] [place] Comment: For patients >49 years of age, the reference limit for Creatinine is approximately 13% higher for people identified as -Latvian. eGFR NON-AFR. CHILEAN 92 > OR = 60 mL/min/[address] [facility] [place] EGFR 107 > OR = 60 mL/min/[address] [facility] [place] BUN/creat ratio NOT APPLICABLE 6 - 22 (calc) [facility] [place] Sodium 141 135 - 146 mmol/L [facility] [place] Potassium, pl 3.6 3.5 - 5.3 mmol/L [facility] [place] Chloride 101 98 - 110 mmol/L [facility] [place] CO2 31 20 - 31 mmol/L [facility] [place] Calcium 9.3 8.6 - 10.3 mg/dL [facility] [place] Protein, sr 6.8 6.1 - 8.1 g/dL [facility] [place] Albumin 4.3 3.6 - 5.1 g/dL [facility] [place] Globulin 2.5 1.9 - 3.7 g/dL (calc) [facility] [place] Alb/glob ratio 1.7 1.0 - 2.5 (calc) [facility] [place] Bilirubin, total 0.6 0.2 - 1.2 mg/dL [facility] [place] Alk phos 68 40 - 115 U/L [facility] [place] AST 14 10 - 35 U/L [facility] [place] ALT (SGPT) 18 9 - 46 U/L [facility] [place] Blood specimen (specimen) 01/01/2017 7:31 AM CDT 01/01/2017 7:31 AM CDT Narrative [facility] - 01/02/2017 1:16 PM CDT FASTING:YES Resulting Agency Comment Performing Organization Information: Site ID: [id number] Name: [facility] Address: [id number] [place] [address] [place] [address] Director: Frank Piedra D.O., MPH Ashley Nj MD LAB BLOOD ORDERABLES Final Result Performing Organization Address [facility] de Phone Number NIS[facility] Gutierrez * Hepatitis C antibody (01/01/2017 7:31 AM CDT) Hep C Ab NON-REACTI VE NON-REACTI VE [facility] SIGNAL TO CUT-OFF 0.03 <1.00 [facility] Blood specimen (specimen) 01/01/2017 7:31 AM CDT 01/01/2017 7:31 AM CDT Narrative [facility] - 01/02/2017 1:16 PM CDT FASTING:YES Resulting Agency Comment Performing Organization Information: Site ID: [id number] Name: [facility] Address: [address] [place] [address] [place] [address] Director: Frank Piedra D.O., MPH Ashley Nj MD LAB MICROBIOLOGY - GENERAL ORDERABLES Final Result Performing Organization Address [facility] Phone Number NISHA Gutierrez documented in this encounter Visit Diagnoses Diagnosis Mixed hyperlipidemia- Primary Exposure to hepatitis B Contact with or exposure to other viral diseases documented in this encounter Additional Health Concerns Infection Onset Date Last Indicated Resolved Time COVID: Suspected 12/15/2019 12/15/2019 12/16/2019 1:16 PM CDT COVID19 12/15/2019 12/15/2019 12/29/2019 3:07 AM CDT COVID: Recovered Comment:Added based on recent COVID infection. 12/29/2019 01/05/2020 04/27/2020 3:[address] COVID: Suspected 08/24/2021 08/24/2021 08/24/2021 1:19 PM CDT documented as of this encounter Care Teams Poultry Processing Supervisor Relationship Specialty Start Date End Date Ashley Nj MD PCP - General 07/19/16 Ray Mcmahon Gastroenterology 01/13/17 05/19/22 Jerson Shepherd MD Cardiovascular Disease 01/13/17 3 [place] [id number] [place] [id number] Pulmonary Disease 01/13/17 [place] [address] [address] Optometry 07/16/17 Josselyn Mathis, [place] [address] [place] [id number] Nurse Practitioner Nurse Practitioner 09/12/17 05/19/22 [place] [address] [address] Consulting Physician Cardiovascular Disease 09/14/17 Aron Hinkle MD [address] [place] [address] [place] [address] Consulting Physician Gastroenterology 11/13/21 Roverto Anderson MD [address] [place] [address] [place] [address] Consulting Physician Plastic Surgery 05/20/22 06/20/24 Carmela Tavares, PONCHO [address] [place] [address] [place] [address] Nurse Practitioner Cardiology 12/02/23 Jerson Shepherd MD [address] [facility] [place] [address] Consulting Physician Cardiology 12/02/23 Ayala Cassidy MD [address] [place] [address] Referring Physician Dermatology 06/21/24 Tray Phillips MD [address] [place] [address] Consulting Physician General Surgery 06/21/24 documented as of this encounter
--- NOTE | 2025-02-05 08:22 | ED.SKABFB ---
HPI - Skin/Abscess/Foreign Bdy General Chief complaint: Skin/Abscess/Foreign Body Stated complaint: bump on back Time Seen by Provider: 02/05/25 08:29 Source: patient, RN notes reviewed and old records reviewed Mode of arrival: ambulatory Limitations: no limitations History of Present Illness HPI narrative: 69-year-old male presents to the [facility] with a cyst to his back. Has been there approximately 3 weeks. Cyst is to the right mid back Patient with history of cyst to the posterior head. Area is firm. Onset (ago): week(s) (3) Treatments prior to arrival: none Related Data Home Medications ?Medication ?Instructions ?Recorded ?Confirmed ?Last Taken ?Type amlodipine 5 mg tablet mg 02/05/25 Unknown History apixaban 5 mg tablet (Eliquis) mg 02/05/25 Unknown History carvedilol 25 mg tablet mg 02/05/25 Unknown History clindamycin phosphate 1 % lotion topical 02/05/25 Unknown History empagliflozin 10 mg tablet mg 02/05/25 Unknown History (Jardiance) furosemide 40 mg tablet mg 02/05/25 Unknown History lansoprazole 30 mg capsule,delayed mg 02/05/25 Unknown History release rosuvastatin 20 mg tablet mg 02/05/25 Unknown History spironolactone 25 mg tablet mg 02/05/25 Unknown History Allergies Allergy/AdvReac Type Severity Reaction Status Date / Time No Known Allergies Allergy Verified 02/05/25 08:29 Review of Systems Review of Systems: All systems reviewed & are unremarkable except as noted in HPI and below Constitutional: Constitutional: Reports no additional constitutional complaints ENT: Reports system reviewed and no additional complaints, except as documented Cardiovascular: Cardiovascular: Reports no additional cardiovascular complaints, Denies chest pain and Denies dyspnea Respiratory: Respiratory: Reports no additional respiratory complaints, Denies chest congestion, Denies cough and Denies dyspnea Musculoskeletal: Musculoskeletal: Reports no additional musculoskeletal complaints Integumentary/Breasts: Skin/Breast: Reports as per HPI [facility] Past Medical History Medical History HTN (hypertension) History of cardioversion Atrial fib/flutter, transient Family History Family History Other Heart disease Hypertension Social History Social History Smoking status: Never smoker Alcohol intake: never Substance use: never Living arrangements: with family Comments At the time of my signature, I reviewed and agree with the nursing past medical, surgical, social, and family history. There is no relevant family history pertinent to the patient complaint. Exam Const: General: cooperative, healthy appearing, comfortable, no acute distress, well developed, alert and well nourished Nutritional Appearance: well nourished Orientation/consciousness: patient oriented x3 Limitations: no limitations HENMT: Head: normal to inspection Eyes: General: appearance normal, both eyes and all related structures Alignment and Position: alignment normal Neck: Neck: normal visual inspection, full ROM, no lymphadenopathy and no meningeal signs Chest: Chest palpation & inspection: normal inspection of the chest Resp: Effort & Inspection: normal respiratory effort and able to speak in complete sentences Auscultation: clear to auscultation bilaterally, no crackles, no rales, no rhonchi and no wheezes Cardio: Rate: regular rate Skin: General skin exam: normal color and no rashes or lesions noted Full body images:  1. 3.5 x 2.5 raised area, pink, firm Neuro: General: patient oriented x3, gait normal, moves all extremities and no meningeal signs Cognition (Neuro): normal cognition Speech: normal speech Gait exam (Neuro): Normal gait present Extrem: General: normal to inspection, full ROM, capillary refill normal and normal gait Psych: Appearance: grossly normal and well kempt Mental Status: mental status grossly normal Speech and movement: Normal speech and movement present and Clear speech present Affect: normal affect Attitude: cooperative Course Course Level of Care: Express Care Visit Vital Signs Vital signs: Vital Signs Temperature 98.5 F 02/05/25 08:20 Pulse Rate 75 02/05/25 08:20 Respiratory Rate 20 02/05/25 08:20 Blood Pressure 145/106 H 02/05/25 08:20 Pulse Oximetry 99 02/05/25 08:20 Oxygen Delivery Room Air 02/05/25 08:20 Temperature 98.5 F 02/05/25 08:20 Pulse Rate 75 02/05/25 08:20 Respiratory Rate 20 02/05/25 08:20 Blood Pressure 145/106 H 02/05/25 08:20 Pulse Oximetry 99 02/05/25 08:20 Oxygen Delivery Room Air 02/05/25 08:20 Reviewed MDM - Skin/Abscess/Foreign Bdy MDM Narrative Medical decision making narrative: Patient sitting in exam room. Patient is nontoxic, vitals are stable except blood pressure mildly elevated. Occur patient currently under treatment for blood pressure issues. Patient presents with concerns of a cyst-like structure to the right mid upper back. Patient is on Eliquis, discussed risk of opening the wound, bleeding, unknown platelet count. Will clean the area, remove the head of the area, scant amount of purulent drainage with blood collected sent to lab. Patient has a interlocking pavement installer he will follow-up with this week. Most likely survey shows or dermoid cyst. Patient appropriate for outpatient treatment with follow-up Discharge instructions reviewed with patient, as well as provided in writing per nursing staff. The instructions also include specific and strict return/GO TO THE ER as well as f/u information. All questions have been answered, and the patient deny any further questions with discharge and discharge plan. Some parts of this dictation were generated by voice recognition software and may contain typographical and/or grammatical inaccuracies. Differential Diagnosis Differential diagnosis: Likely abscess of skin or subcutaneous tissue, urticaria, cellulitis, eczema and contact dermatitis Critical Care Time Critical Care Time Critical Care Time: No Discharge Plan Discharge Clinical Impression: Dermoid cyst of skin of back Patient Disposition: Home Condition: Stable Instructions: Antibiotic Form, Cyst (ED) Additional Instructions: Keep area clean and dry. Wash with warm soapy water, pat dry. Take antibiotics as prescribed Use antibiotic ointment as prescribed Follow-up with your interlocking pavement installer Follow-up with your primary care provider. Today your blood pressure was 145/106 it is recommended that you follow-up to have this rechecked within 2 week Patient Language: Polish Prescriptions: New cephalexin 500 mg capsule 500 mg PO QID 7 Days Qty: 28 0RF mupirocin [Centany] 2 % ointment 1 applic topical BID Qty: 15 0RF No Action furosemide 40 mg tablet carvedilol 25 mg tablet amlodipine 5 mg tablet spironolactone 25 mg tablet lansoprazole 30 mg capsule,delayed release(DR/EC) clindamycin phosphate 1 % lotion TOPICAL rosuvastatin 20 mg tablet Eliquis 5 mg tablet Jardiance 10 mg tablet Follow-up/Referrals: Rodrigo Fang MD [Physician, Plastic Surgery] Carmel Romero MD [Physician, General Surgery] Clem,MD Ashley [Primary Care Provider] Stand Alone Forms: Work/School Release IP Time of Disposition: 08:53
== END 2025-02-05 08:59 | disposition home or self-care (01) ==
PROVIDERS: Emergency Provider Nurse Practitioner; PCP Internal Medicine Geriatric Medicine
DX: D23.5 Other benign neoplasm of skin of trunk (principal); I10 Essential (primary) hypertension; I48.91 Unspecified atrial fibrillation; I48.92 Unspecified atrial flutter; Z79.01 Long term (current) use of anticoagulants
CPT/HCPCS: 87070; 87205; 99213; G0463